=== PATIENT | male | born 1955 | race Caucasian/White ===

== ENCOUNTER 2016-09-01 09:57 | Day surgery (SDC) | payer OTHER ==
[~2016-09-01] VITALS: Ht 172.7 cm; Wt 95.3 kg
[~2016-09-01 09:57] MED LIST: ASPI-482 PO; ATOR40TA59 PO; CEFAZOLIN 1GM IVPB FOR OMNI 50 ML IV ONE; CETI10TA22 PO; FAMO-63 PO; FENTANYL PF 100 MCG/2 ML VIAL. IV PRN; FLUT9.9S NS; HYDR12.58 PO; HYDROMORPHONE 2 MG/ML VIAL. IV PRN; IV RINGERS,LACTATED 1000ML 1,000 ML IV SCH; LIDOCAINE 1% 1 ML SYRINGE. ID PRN; LISI-338 PO; LOSA25TA4 PO; MONT10TA9 PO; MORPHINE SULFATE 2 MG/ML DISP.SYRIN. IV PRN; MULT-658 PO; ONDANSETRON PF 4 MG/2 ML VIAL. IV PRN; PROCHLORPERAZINE 10 MG/2 ML VIAL. IV PRN
--- NOTE | 2016-09-01 10:10 | DISCH ---
DISCHARGE INSTRUCTIONS Condition on Discharge Condition on Discharge: Stable Activity After Discharge Activity Instructions for Disc: Activity as tolerated Bathing Instructions: Shower-keep dressing dry Lifting Instructions after Dis: No heavy lifting, No pulling or pushing, Do not lift >10 pounds Weight Bearing Status after Di: As tolerated Diet after Discharge Diet after Discharge: Regular Wound Incision Care Wound/Incision Care: Ice to area for comfort, Keep wound/cast CDI, Keep wound elevated, Change dressing Contacting the DRValery after DC Call your doctor for: Concerns you may have Follow-Up Follow up with: Yakov in 2wks GINI WHITAKER II, MD Sep 01, 2016 10:10
--- NOTE | 2016-09-01 10:11 | PDOC ---
BRIEF OPERATIVE NOTE Date: Sep 01, 2016 Pre-Op Diagnosis R 2nd finger cyst Post-Op Diagnosis same Procedure Performed R 2nd digit cyst excision Surgeon Yakov Blood Loss 5mL Specimens Obtained cyst sent to Path Complications none GINI WHITAKER II, MD Sep 01, 2016 10:11
[2016-09-01] MEDS ORDERED: MIDAZOLAM HCL 2 MG/2 ML VIAL. ONE (11:15)
[2016-09-01] MEDS ORDERED: FENTANYL PF 100 MCG/2 ML VIAL. ONE (11:24)
[2016-09-01] MEDS ORDERED: LIDOCAINE 1% PF 30 ML VIAL. ONE (12:06)
[2016-09-01] MEDS ORDERED: HYDR-2666 PO (12:10)
[2016-09-01 12:38] VITALS: BP 150/86
--- NOTE | 2016-09-01 16:36 | OP ---
DATE OF SURGERY: 09/01/2016 SURGEON: Austin Whitaker MD. AIR HOSE COUPLER: None. PREOPERATIVE DIAGNOSIS: Left index finger flexor tendon sheath ganglion cyst. POSTOPERATIVE DIAGNOSIS: Left index finger flexor tendon sheath ganglion cyst. PROCEDURE PERFORMED: Left second digit cyst excision. SPECIMENS: Cyst was sent for pathologic examination. ESTIMATED BLOOD LOSS: 5 mL. TOURNIQUET TIME: 24 minutes. COMPLICATIONS: None. REASON FOR PROCEDURE: The patient is a very pleasant 61-year-old gentleman, who has had progressive pain over a painful bump at his volar left second digit adjacent to the base of the wound. It has been increasing in size, very slowly over several months, but it has been interfering with his ability to work. Therefore, we had discussion of risks, benefits, alternatives to cyst excision. Clinical and MRI examination were performed and was consistent with a ganglion cyst. I did discuss with him the possibility of malignancy and he agreed to proceed with surgery. DESCRIPTION OF PROCEDURE: The patient was greeted in the preoperative area where the correct extremity was marked and verified. He was taken back to the operative suite and antibiotics started en route. Once in the OR, he had successful placement of a [place] block by the anesthesiology team to his left upper extremity. We then proceeded to prep and drape the left upper extremity in usual sterile fashion and conducted a standard preoperative timeout. I then palpated, first line production supervisor made an oblique incision starting from the radial aspect of the flexor crease at the base of the second digit and then extended that in V-shaped fashion at its distal aspect. I then developed the flap and kept it full-thickness. Then registered dental assistant held Ragnell retractors at the incision. I used tenotomies dissect down identified the cyst. I used a small mosquito and fine-tipped tenotomy dissector around the cyst and noted that the stalk of the cyst appeared to be wrapping around the radial aspect of the flexor sheath. It was adherent to the A2 ashly. I then excised the cyst and took care not to disrupt the A2 ashly. I then used bipolar cautery at the stalk. The Ragnell retractors were removed and the wound was thoroughly irrigated with sterile normal saline. The cyst was sent off to Pathology. There was some venous oozing that I cauterized with bipolar electrocautery throughout this procedure as well. I then placed two simple 3-0 nylon sutures to close the skin followed by Xeroform, sterile gauze, sterile cast padding and an Joe wrap to his left upper extremity and digits 2 and 3 for a radial gutter type affect. We then took down the drapes and the tourniquet was let down. He was then transferred gently supine to the recovery room cart and taken to PACU in stable and extubated condition. Postop plan is to discharge him home. I then given wound care and dressing instructions. We will see him back in clinic in 2 weeks, sooner should problems arise. AUSTIN WHITAKER MD DR: BRITNEY/jennifer JOB#: [id number] / [id number] KATHARINA
--- NOTE | 2016-09-02 16:56 | PATHOLOGY ---
PATHOLOGY REPORT * * * * * * * * FINAL DIAGNOSIS: Dense fibroconnective tissue, left second digit mass: - Consistent with ganglion cyst. (JPM:; d/t: 09/02/16) REPORT ELECTRONICALLY SIGNED BY: Haile Saleh M.D. DATE/TIME: 09/02/2016 16:55 * * * * * * * * GROSS PATHOLOGY: The specimen is received in formalin labeled "Lambert Whitley, left second digit mass". Received are several partially cystic pieces of pale rosado glistening tissue measuring 0.8 x 0.3 x 0.1 cm in aggregate dimensions. The specimen is filtered and entirely submitted in cassette A1. (CAA; 09/01/2016) INITIAL CPT CODE(S): 46473 Professional services performed [place] [address] Technical services performed by [facility] at [address] [place] [address]. SPECIMEN(S) RECEIVED: A.Left second digit mass CLINICAL HISTORY: Finger mass, left PATIENT: LAMBERT WHITLEY /AGE: 1005/16/1955 (Age: 61) PATIENT #: [id number] ALT CASE #: SPECIMEN COLLECTION DATE: 09/01/2016 SPECIMEN RECEIVED DATE: 09/01/2016 [facility] - [address] [place] [address] - PHONE: [phone] * * * END OF REPORT * * *
== END 2016-09-01 13:00 | disposition home or self-care (01) ==
LOC: SURG 09:57
PROVIDERS: ATTEND Orthopaedic Surgery Sports Medicine
DX: M67.442 Ganglion, left hand (principal); E78.00 Pure hypercholesterolemia, unspecified; I10 Essential (primary) hypertension; K21.9 Gastro-esophageal reflux disease without esophagitis
CPT/HCPCS: 26160; 88304; J0690; J2250; J3010

== ENCOUNTER → 2017-01-14 | Outpatient (CLI) | payer OTHER ==
[~2017-01-14] MED LIST changes: -CEFAZOLIN 1GM IVPB FOR OMNI 50 ML IV ONE; -FENTANYL PF 100 MCG/2 ML VIAL. IV PRN; +HYDR-2758 PO; -HYDROMORPHONE 2 MG/ML VIAL. IV PRN; -IV RINGERS,LACTATED 1000ML 1,000 ML IV SCH; -LIDOCAINE 1% 1 ML SYRINGE. ID PRN; -MORPHINE SULFATE 2 MG/ML DISP.SYRIN. IV PRN; -ONDANSETRON PF 4 MG/2 ML VIAL. IV PRN; -PROCHLORPERAZINE 10 MG/2 ML VIAL. IV PRN
[2017-01-14 07:36] LABS: BASO # 0.1 x10^3/uL (0.0-0.2); BASO % 1 % (0-3); EOS % 2 % (0-3); HEMATOCRIT 46.1 % (39.0-53.0); HEMOGLOBIN 15.8 g/dL (13.0-17.5); LYMPH # 2.2 x10^3/uL (1.0-4.8); LYMPH % 30 % (24-48); MEAN CORPUSCULAR HEMOGLOBIN 32 pg (25-35); MEAN CORPUSCULAR HGB CONC 34 g/dL (31-37); MEAN CORPUSCULAR VOLUME 93 fL (79-100); MONO % 8 % (0-9); NEUT % 59 % (31-73); PLATELET COUNT 259 x10^3/uL (140-400); RED BLOOD COUNT 4.95 x10^6/uL (4.30-5.70); RED CELL DISTRIBUTION WIDTH 13.4 % (11.5-14.5); WHITE BLOOD COUNT 7.3 x10^3/uL (4.0-11.0)
[2017-01-14 08:01] LABS: ALBUMIN 4.1 g/dL (3.4-5.0); ALBUMIN/GLOBULIN RATIO 1.4 (1.0-1.7); CALCIUM 9.1 mg/dL (8.5-10.1); GFR 76.2; POTASSIUM 4.2 mmol/L (3.5-5.1); TOTAL BILIRUBIN 0.6 mg/dL (0.2-1.0); TOTAL PROTEIN 7.1 g/dL (6.4-8.2)
[2017-01-14 08:04] LABS: CHOLESTEROL/HDL RATIO 3.8
== END | disposition home or self-care (01) ==
LOC: LAB 06:37
PROVIDERS: ATTEND Family Medicine
DX: Z12.5 Encounter for screening for malignant neoplasm of prostate (principal); I10 Essential (primary) hypertension; R73.01 Impaired fasting glucose
CPT/HCPCS: 36415; 80053; 80061; 83036; 85027; G0103

== ENCOUNTER → 2017-09-09 | Outpatient (CLI) | payer OTHER ==
[2017-09-09 07:26] LABS: ADD MAN DIFF? NO
[2017-09-09 07:36] LABS: BASO # 0.1 x10^3/uL (0.0-0.2); BASO % 1 % (0-3); EOS # 0.1 x10^3/uL (0.0-0.7); EOS % 2 % (0-3); HEMATOCRIT 44.8 % (39.0-53.0); HEMOGLOBIN 15.3 g/dL (13.0-17.5); LYMPH # 2.2 x10^3/uL (1.0-4.8); LYMPH % 31 % (24-48); MEAN CORPUSCULAR HEMOGLOBIN 32 pg (25-35); MEAN CORPUSCULAR HGB CONC 34 g/dL (31-37); MEAN CORPUSCULAR VOLUME 93 fL (79-100); MONO # 0.5 x10^3/uL (0.0-1.1); MONO % 8 % (0-9); NEUT # 4.1 x10^3uL (1.8-7.7); NEUT % 59 % (31-73); PLATELET COUNT 265 x10^3/uL (140-400); RED BLOOD COUNT 4.83 x10^6/uL (4.30-5.70); RED CELL DISTRIBUTION WIDTH 13.4 % (11.5-14.5)
[2017-09-09 07:55] LABS: ALBUMIN 3.8 g/dL (3.4-5.0); ALBUMIN/GLOBULIN RATIO 1.3 (1.0-1.7); ALK PHOS 57 U/L (46-116); ALT (SGPT) 50 U/L (16-63); ANION GAP 7 (6-14); AST (SGOT) 28 U/L (15-37); BLOOD UREA NITROGEN 17 mg/dL (8-26); BUN/CREATININE RATIO 17 (6-20); CARBON DIOXIDE 28 mmol/L (21-32); CHLORIDE 105 mmol/L (98-107); CHOLESTEROL 139 mg/dL (0-200); GLUCOSE 110 mg/dL (70-99); HDLC 41 mg/dL (40-60); LDLC 77 mg/dL (0-100); NON-HDL CHOLESTEROL 98 mg/dL (0-129); POTASSIUM 4.1 mmol/L (3.5-5.1); SODIUM 140 mmol/L (136-145); TOTAL BILIRUBIN 0.6 mg/dL (0.2-1.0); TOTAL PROTEIN 6.7 g/dL (6.4-8.2); TRIGLYCERIDES 105 mg/dL (0-150); VLDLC 21 mg/dL (0-40)
[2017-09-09 08:06] LABS: CHOLESTEROL/HDL RATIO 3.4
[2017-09-09 09:49] LABS: PROSTATE SPECIFIC ANTIGEN 0.44 ng/mL (0.00-4.00)
[2017-09-09 15:29] LABS: HEMOGLOBIN A1C 5.3 % (4.8-5.6)
== END | disposition home or self-care (01) ==
LOC: LAB 07:03
DX: Z12.5 Encounter for screening for malignant neoplasm of prostate (principal); I10 Essential (primary) hypertension; E78.00 Pure hypercholesterolemia, unspecified; N40.0 Benign prostatic hyperplasia without lower urinary tract symptoms; R73.01 Impaired fasting glucose
CPT/HCPCS: 36415; 80053; 80061; 83036; 85025; G0103

== ENCOUNTER → 2018-02-16 | Outpatient (CLI) | payer OTHER ==
[2018-02-16 07:28] LABS: ADD MAN DIFF? NO
[2018-02-16 07:35] LABS: BASO # 0.1 x10^3/uL (0.0-0.2); BASO % 1 % (0-3); EOS # 0.2 x10^3/uL (0.0-0.7); EOS % 2 % (0-3); HEMATOCRIT 46.1 % (39.0-53.0); HEMOGLOBIN 16.4 g/dL (13.0-17.5); LYMPH # 2.1 x10^3/uL (1.0-4.8); LYMPH % 32 % (24-48); MEAN CORPUSCULAR HEMOGLOBIN 33 pg (25-35); MEAN CORPUSCULAR HGB CONC 35 g/dL (31-37); MEAN CORPUSCULAR VOLUME 93 fL (79-100); MONO # 0.5 x10^3/uL (0.0-1.1); MONO % 8 % (0-9); NEUT # 3.7 x10^3uL (1.8-7.7); NEUT % 56 % (31-73); PLATELET COUNT 264 x10^3/uL (140-400); RED BLOOD COUNT 4.96 x10^6/uL (4.30-5.70); RED CELL DISTRIBUTION WIDTH 13.8 % (11.5-14.5); WHITE BLOOD COUNT 6.5 x10^3/uL (4.0-11.0)
[2018-02-16 07:59] LABS: CHOLESTEROL 174 mg/dL (0-200); HDLC 35 mg/dL (40-60); LDLC 106 mg/dL (0-100); NON-HDL CHOLESTEROL 139 mg/dL (0-129); TRIGLYCERIDES 163 mg/dL (0-150); VLDLC 33 mg/dL (0-40)
[2018-02-16 08:11] LABS: FREE T4 1.15 ng/dL (0.76-1.46)
== END | disposition home or self-care (01) ==
LOC: LAB 06:28
DX: E78.2 Mixed hyperlipidemia (principal); R53.83 Other fatigue; I10 Essential (primary) hypertension
CPT/HCPCS: 36415; 80061; 84439; 84443; 84481; 85025

== ENCOUNTER → 2018-12-15 | Day surgery (SDC) | payer OTHER ==
[~2018-12-15] MED LIST changes: -HYDR-2758 PO; +HYDR-2761 PO; +HYDROmorphone 2 MG/ML VIAL IV PRN; +IV RINGERS,LACTATED 1000ML 1,000 ML IV SCH; +LIDOCAINE 1% PF 2 ML VIAL. ID PRN; +LIDOCAINE 2% PF 5 ML VIAL. ONE; -LOSA25TA4 PO; +LOSA25TA54 PO; +MORPHINE SULFATE 2 MG/ML VIAL. IV PRN; +OLME1TAB25 PO; +ONDANSETRON PF 4 MG/2 ML VIAL. IV PRN; +PROCHLORPERAZINE 10 MG/2 ML VIAL. IV PRN; +PROPOFOL 40 ML IV ONE; +fentaNYL PF VIAL 100 MCG/2 ML VIAL IV PRN
[2018-12-15 08:35] VITALS: BP 132/71
== END ==
LOC: ENDOS 06:30
PROVIDERS: ATTEND Internal Medicine Gastroenterology
DX: Z12.11 Encounter for screening for malignant neoplasm of colon (principal); K64.0 First degree hemorrhoids; K63.89 Other specified diseases of intestine; I10 Essential (primary) hypertension; E78.00 Pure hypercholesterolemia, unspecified; K21.9 Gastro-esophageal reflux disease without esophagitis; F41.9 Anxiety disorder, unspecified; Z85.828 Personal history of other malignant neoplasm of skin; Z91.040 Latex allergy status; Z72.89 Other problems related to lifestyle; Z79.82 Long term (current) use of aspirin; Z79.899 Other long term (current) drug therapy; Z98.52 Vasectomy status; Z98.890 Other specified postprocedural states
CPT/HCPCS: 45378; J2001; J2704

== ENCOUNTER → 2018-12-22 | Outpatient (CLI) | payer OTHER ==
[2018-12-15 08:35] VITALS: BP 132/71
[~2018-12-22] MED LIST changes: -HYDROmorphone 2 MG/ML VIAL IV PRN; -IV RINGERS,LACTATED 1000ML 1,000 ML IV SCH; -LIDOCAINE 1% PF 2 ML VIAL. ID PRN; -LIDOCAINE 2% PF 5 ML VIAL. ONE; -MORPHINE SULFATE 2 MG/ML VIAL. IV PRN; -ONDANSETRON PF 4 MG/2 ML VIAL. IV PRN; -PROCHLORPERAZINE 10 MG/2 ML VIAL. IV PRN; -PROPOFOL 40 ML IV ONE; -fentaNYL PF VIAL 100 MCG/2 ML VIAL IV PRN
[2018-12-22 07:27] LABS: BASO # 0.1 x10^3/uL (0.0-0.2); BASO % 1 % (0-3); EOS # 0.2 x10^3/uL (0.0-0.7); EOS % 3 % (0-3); HEMATOCRIT 45.6 % (39.0-53.0); HEMOGLOBIN 15.6 g/dL (13.0-17.5); LYMPH # 2.3 x10^3/uL (1.0-4.8); LYMPH % 31 % (24-48); MEAN CORPUSCULAR HEMOGLOBIN 32 pg (25-35); MEAN CORPUSCULAR HGB CONC 34 g/dL (31-37); MEAN CORPUSCULAR VOLUME 94 fL (79-100); MONO # 0.7 x10^3/uL (0.0-1.1); MONO % 9 % (0-9); NEUT # 4.2 x10^3uL (1.8-7.7); NEUT % 57 % (31-73); PLATELET COUNT 274 x10^3/uL (140-400); RED BLOOD COUNT 4.86 x10^6/uL (4.30-5.70); WHITE BLOOD COUNT 7.4 x10^3/uL (4.0-11.0)
[2018-12-22 08:22] LABS: ALBUMIN 3.9 g/dL (3.4-5.0); ALBUMIN/GLOBULIN RATIO 1.3 (1.0-1.7); CALCIUM 9.3 mg/dL (8.5-10.1); CREATININE 1.1 mg/dL (0.7-1.3); GFR 67.8; POTASSIUM 4.2 mmol/L (3.5-5.1); TOTAL BILIRUBIN 0.5 mg/dL (0.2-1.0); TOTAL PROTEIN 6.9 g/dL (6.4-8.2)
[2018-12-22 08:37] LABS: CHOLESTEROL/HDL RATIO 4.8
[2018-12-22 09:03] LABS: FREE T4 1.1 ng/dL (0.76-1.46); THYROID STIM HORMONE (TSH) 2.103 uIU/mL (0.358-3.74)
== END | disposition home or self-care (01) ==
LOC: LAB 06:31
PROVIDERS: ATTEND Family Medicine
DX: Z00.01 Encounter for general adult medical examination with abnormal findings (principal); E78.00 Pure hypercholesterolemia, unspecified; I10 Essential (primary) hypertension; R53.81 Other malaise
CPT/HCPCS: 36415; 80053; 80061; 84439; 84443; 85025

== ENCOUNTER → 2019-04-05 | Outpatient (CLI) | payer OTHER ==
[2018-12-15 08:35] VITALS: BP 132/71
[~2019-04-05] MED LIST changes: +MONT10TA49 PO; -MONT10TA9 PO
[2019-04-05 10:41] LABS: CALCIUM 9.3 mg/dL (8.5-10.1); GFR 75.7
== END | disposition home or self-care (01) ==
LOC: LAB 09:36
PROVIDERS: ATTEND Anesthesiology
DX: I10 Essential (primary) hypertension (principal)
CPT/HCPCS: 36415; 80048

== ENCOUNTER → 2020-03-27 | Outpatient (CLI) | payer OTHER ==
[2018-12-15 08:35] VITALS: BP 132/71
[~2020-03-27] MED LIST changes: -CETI10TA22 PO; +CETI10TA74 PO
--- NOTE | 2020-03-27 17:00 | RAD ---
STUDY: MRI of the left shoulder without contrast INDICATION: Worsening chronic left shoulder pain. COMPARISON: Left shoulder radiographs 03/25/2020. TECHNIQUE: Multiplanar MR imaging of the left shoulder performed without the use of intravenous or intra-articular contrast. FINDINGS: AC joint: Mild AC joint arthrosis. Small volume subacromial subdeltoid bursal fluid. Rotator cuff: Generalized high-grade thinning of the supraspinatus at and medial to the footprint with 75 percent or more loss of tendon cross-sectional thickness. This is on account of articular sided tearing and there appears to be medial tendon retraction just over 2 cm from the footprint though a component of what appears to be retracted tendon could represent the rotator cable. Possible small superimposed full-thickness tear at the leading edge, image 13 series 7. The infraspinatus, teres minor and subscapularis are intact. Rotator cuff muscular bulk is maintained. Labrum: Intact. Long head biceps tendon: Intact and normally located. Cartilage: Appears intact. Bones: No acute fracture. Humeral head degenerative changes surrounding the bicipital groove. Miscellaneous: No significant joint effusion. Unremarkable axillary soft tissues. Impression: 1. High-grade thinning of the majority of the supraspinatus both at and up to 2 cm medial to the footprint with approximately 75 percent or more loss of tendon cross-sectional thickness (image 10 series 7). Favored retracted articular sided fibers to the mid superior humeral head as opposed to a thickened rotator cable. There may be a small superimposed full thickness tear at the leading edge (image 13 series 7). The rest of the rotator cuff tendons are intact and muscular bulk is normal. 2. Intact labrum and long head biceps tendon. 3. Mild AC joint arthrosis and small volume fluid distention of the subacromial subdeltoid bursa. Electronically signed by: SANJAY GARCIA MD (03/27/2020 4:57 PM) [id number]
== END | disposition home or self-care (01) ==
LOC: MRI 14:22
PROVIDERS: ATTEND Orthopaedic Surgery Sports Medicine
DX: M19.012 Primary osteoarthritis, left shoulder (principal); M25.412 Effusion, left shoulder; M75.102 Unspecified rotator cuff tear or rupture of left shoulder, not specified as traumatic; G89.29 Other chronic pain
CPT/HCPCS: 73221

== ENCOUNTER → 2020-04-08 | Outpatient (CLI) | payer OTHER ==
[2018-12-15 08:35] VITALS: BP 132/71
[2020-04-08 08:47] LABS: BASO # 0.1 x10^3/uL (0.0-0.2); BASO % 1 % (0-3); EOS # 0.1 x10^3/uL (0.0-0.7); EOS % 3 % (0-3); HEMATOCRIT 45.8 % (39.0-53.0); HEMOGLOBIN 15.5 g/dL (13.0-17.5); LYMPH # 1.9 x10^3/uL (1.0-4.8); LYMPH % 34 % (24-48); MEAN CORPUSCULAR HEMOGLOBIN 32 pg (25-35); MEAN CORPUSCULAR HGB CONC 34 g/dL (31-37); MEAN CORPUSCULAR VOLUME 94 fL (79-100); MONO # 0.5 x10^3/uL (0.0-1.1); MONO % 9 % (0-9); NEUT % 54 % (31-73); PLATELET COUNT 271 x10^3/uL (140-400); RED BLOOD COUNT 4.86 x10^6/uL (4.30-5.70); RED CELL DISTRIBUTION WIDTH 13.2 % (11.5-14.5); WHITE BLOOD COUNT 5.7 x10^3/uL (4.0-11.0)
[2020-04-08 09:04] LABS: ALBUMIN 4.1 g/dL (3.4-5.0); ALBUMIN/GLOBULIN RATIO 1.5 (1.0-1.7); CREATININE 1.1 mg/dL (0.7-1.3); GFR 67.6; TOTAL BILIRUBIN 0.6 mg/dL (0.2-1.0); TOTAL PROTEIN 6.9 g/dL (6.4-8.2)
[2020-04-08 09:08] LABS: CHOLESTEROL/HDL RATIO 4.3
[2020-04-09 00:07] LABS: HEMOGLOBIN A1C 5.4 % (4.8-5.6)
== END | disposition home or self-care (01) ==
LOC: LAB 06:40
PROVIDERS: ATTEND Family Medicine
DX: Z12.5 Encounter for screening for malignant neoplasm of prostate (principal); R73.01 Impaired fasting glucose; N40.0 Benign prostatic hyperplasia without lower urinary tract symptoms; I10 Essential (primary) hypertension
CPT/HCPCS: 36415; 80053; 80061; 83036; 85025; G0103

== ENCOUNTER → 2021-04-17 | Outpatient (CLI) | payer OTHER ==
[2018-12-15 08:35] VITALS: BP 132/71
[~2021-04-17] MED LIST changes: -LISI-338 PO; +LISI5TAB15 PO
[2021-04-17 08:06] LABS: BASO # 0.1 x10^3/uL (0.0-0.2); BASO % 1 % (0-3); EOS # 0.2 x10^3/uL (0.0-0.7); EOS % 3 % (0-3); HEMATOCRIT 45.1 % (39.0-53.0); HEMOGLOBIN 15.8 g/dL (13.0-17.5); LYMPH # 2.2 x10^3/uL (1.0-4.8); LYMPH % 33 % (24-48); MEAN CORPUSCULAR HEMOGLOBIN 33 pg (25-35); MEAN CORPUSCULAR HGB CONC 35 g/dL (31-37); MEAN CORPUSCULAR VOLUME 94 fL (79-100); MONO # 0.5 x10^3/uL (0.0-1.1); MONO % 8 % (0-9); NEUT # 3.8 x10^3/uL (1.8-7.7); NEUT % 55 % (31-73); PLATELET COUNT 276 x10^3/uL (140-400); RED BLOOD COUNT 4.82 x10^6/uL (4.30-5.70); WHITE BLOOD COUNT 6.8 x10^3/uL (4.0-11.0)
[2021-04-17 08:21] LABS: ALBUMIN/GLOBULIN RATIO 1.3 (1.0-1.7); CALCIUM 9.1 mg/dL (8.5-10.1); GFR 75.2; POTASSIUM 4.1 mmol/L (3.5-5.1); TOTAL BILIRUBIN 0.6 mg/dL (0.2-1.0); TOTAL PROTEIN 7.2 g/dL (6.4-8.2)
[2021-04-17 08:23] LABS: CHOLESTEROL/HDL RATIO 5.1
[2021-04-18 00:08] LABS: HEMOGLOBIN A1C 5.6 % (4.8-5.6)
== END ==
LOC: LAB 06:08
PROVIDERS: ATTEND Family Medicine
DX: Z12.5 Encounter for screening for malignant neoplasm of prostate (principal); Z13.220 Encounter for screening for lipoid disorders; R73.09 Other abnormal glucose; I10 Essential (primary) hypertension
CPT/HCPCS: 36415; 80053; 80061; 83036; 83721; 84153; 85025; G0103